=== PATIENT | female | born 1965 | race Caucasian/White ===

== ENCOUNTER → 2018-04-12 | Day surgery (SDC) | payer BC ==
[~2018-04-12] MED LIST: Lactated Ringers 1,000 ML IV SCH; Propofol 200 MG/20 ML SDV IV ONE
--- NOTE | 2018-04-15 09:52 | OR ---
DATE OF OPERATION: 04/12/2018 PREOPERATIVE DIAGNOSIS: FAMILY HISTORY OF COLON CANCER. POSTOPERATIVE DIAGNOSIS: FAMILY HISTORY OF COLON CANCER. SURGEON: Carlitos Galvez MD PROCEDURE: FULL-LENGTH COLONOSCOPY. 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 COMPLICATIONS: None. SPECIMEN: None. FINDINGS: 1. Full-length colonoscopy. 2. Moderate sigmoid diverticulosis. RECOMMENDATIONS: Followup colonoscopy every 5 years. INDICATIONS: The patient is in for her first colonoscopy. Her father of colon cancer. DESCRIPTION OF PROCEDURE: The patient was prepped and draped, placed in the left lateral decubitus position. A lubricated Olympus colonoscope was inserted and ultimately advanced to the cecum. We were able to directly visualize the ileocecal valve, palpated, and visualized the light in the right lower quadrant. The cecal pouch itself had a lot of stool, most of this could not be suctioned well due to the thickness. Upon withdrawal, throughout the right transverse and descending colon, no abnormalities were seen. The patient has fairly prominent diverticulosis for age in the sigmoid from its mid portion at the rectosigmoid junction, moderate in severity. No other polyps, mass, ulceration, or bleeding sites were seen. No vascular abnormalities or signs of colitis. The rectal vault was benign. Retroflexion of scope in the rectum showed no perianal lesions. The air was suctioned. The scope removed without complication. JASBIR/TULIO /[id number]
== END ==
LOC: CC.SDS 10:53
PROVIDERS: ATTEND Family Medicine
DX: Z12.11 Encounter for screening for malignant neoplasm of colon (principal); K57.30 Diverticulosis of large intestine without perforation or abscess without bleeding; F17.210 Nicotine dependence, cigarettes, uncomplicated; F41.9 Anxiety disorder, unspecified; F32.9 Major depressive disorder, single episode, unspecified; M19.90 Unspecified osteoarthritis, unspecified site; Z79.899 Other long term (current) drug therapy; Z91.048 Other nonmedicinal substance allergy status; Z80.0 Family history of malignant neoplasm of digestive organs
CPT/HCPCS: 45378; J2704; J7120